=== PATIENT | female | born 1995 | race Caucasian/White ===

== ENCOUNTER 2016-08-12 15:01 | Emergency (ER) | payer OTHER ==
--- NOTE | 2016-08-12 15:26 | ED NURSING NOTES ---
Clinical Report - Nurses [facility] [address] [place] [address] 08/12/2016 15:02 Patient: ARCHIE SAMUEL TRIAGE Triage time 15:16 Aug 12 2016. Acuity: LEVEL 4. Chief Complaint: INJURY TO RIGHT WRIST. DEEP COMA SCORE: [employer] Coma Scale: 15- eyes open spontaneously (4); best verbal response- oriented x 4 (5); best motor response- obeys commands (6). --15:24 Celestino Christianson R.N. 15:15 08/12/16. BP: 132/88. HR: 99. RR: 18. O2 saturation: 100%. Temp: 98.4 F. Pain level now 5/10. --15:24 Celestino Christianson R.N. Weight: 94.8 kg stated. Height/Length: 66 inches Per Patient. BMI: 33.7. --15:22 Celestino Christianson R.N. Medications ASA Oral. --15:18 Celestino Christianson R.N. Allergies Amoxicillin. --15:18 Celestino Christianson R.N. History Arrived by private vehicle. Historian: patient. This occurred at an unknown time. Occurred at work. 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 She has had weakness. No neck pain. 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 PAST MEDICAL HX: Tetanus status: up-to-date. Immunizations: up-to-date. Last normal menstrual period- 2 days ago. SOCIAL HX: Current every day light tobacco smoker (cigarette)- less than 1/2 a pack per day. Occasional alcohol use. No drug use. SELF HARM ASSESSMENT: A self harm assessment was performed. The patient answered "no" to the question "Have you recently felt down, depressed, or hopeless?" and "Do you have thoughts of harming or killing yourself?". FALL RISK ASSESSMENT: Fall risk assessment completed. No fall risk identified. NUTRITIONAL RISK ASSESSMENT: The nutritional risk assessment revealed no deficiencies. FUNCTIONAL ASSESSMENT: Functional assessment: no impairments noted. LEARNING NEEDS ASSESSMENT: The learning needs assessment revealed no barriers. ABUSE ASSESSMENT: Abuse assessment: (yes) The patient was asked "Do you feel safe in your home?". SKIN INTEGRITY ASSESSMENT: Skin integrity risk assessment completed. No skin integrity risk identified. --15:24 Celestino Christianson R.N. PROBLEMS: Gastroenteritis. Sick Contact. Afib . Contact Dermatitis. --15:19 Celestino Christianson R.N. ADDITIONAL SURGERIES: [place] teeth. --15:19 Celestino Christianson R.N. Interventions ID band on patient. --15:24 Celestino Christianson R.N. PHYSICAL ASSESSMENT Ambulatory to room. GENERAL / NEURO / PSYCH: Oriented X 4. Alert. Appears in no acute distress. EXTREMITIES: Capillary refill is less than 2 seconds in the extremities. Extremity pulses are within normal limits. Extremities exhibit normal ROM. Neuro-vascular status intact to the extremity. Right wrist: tenderness. SKIN: Skin intact. Skin is warm and dry. --15:24 Celestino Christianson R.N. NURSING PROGRESS NOTES Reassurance given. Call light placed in reach. Side rails up x 1. Bed placed in lowest position. Brakes of bed on. --15:24 Celestino Christianson R.N. DISPOSITION / DISCHARGE Departure time: 15:35 Aug 12 2016. Condition at departure: unchanged. No learning barriers present. Discharge instructions provided and reviewed with the patient. Reviewed warnings. Reviewed medication(s). Treatments reviewed. Reviewed referrals. Work note given. Patient verbalized understanding. Written instructions provided in Tajik. The patient was discharged home. She left the Emergency Department ambulatory and via private vehicle. Patient driving. --15:35 Celestino Christianson R.N. 15:15 08/12/16. BP: 132/88. HR: 99. RR: 18. O2 saturation: 100%. Temp: 98.4 F. Pain level now 5/10. --15:35 Celestino Christianson R.N. Locked/Released at 08/12/2016 19:21 by Celestino Christianson R.N.
--- NOTE | 2016-08-12 15:26 | ED NURSING NOTES ---
Clinical Report - Nurses [facility] [address] [place] [address] 08/12/2016 15:02 Patient: ARCHIE SAMUEL TRIAGE Triage time 15:16 Aug 12 2016. Acuity: LEVEL 4. Chief Complaint: INJURY TO RIGHT WRIST. DEEP COMA SCORE: [place] Coma Scale: 15- eyes open spontaneously (4); best verbal response- oriented x 4 (5); best motor response- obeys commands (6). --15:24 Celestino Christianson R.N. 15:15 08/12/16. BP: 132/88. HR: 99. RR: 18. O2 saturation: 100%. Temp: 98.4 F. Pain level now 5/10. --15:24 Celestino Christianson R.N. Weight: 94.8 kg stated. Height/Length: 66 inches Per Patient. BMI: 33.7. --15:22 Celestino Christianson R.N. Medications ASA Oral. --15:18 Celestino Christianson R.N. Allergies Amoxicillin. --15:18 Celestino Christianson R.N. History Arrived by private vehicle. Historian: patient. This occurred at an unknown time. Occurred at work. 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 She has had weakness. No neck pain. 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 PAST MEDICAL HX: Tetanus status: up-to-date. Immunizations: up-to-date. Last normal menstrual period- 2 days ago. SOCIAL HX: Current every day light tobacco smoker (cigarette)- less than 1/2 a pack per day. Occasional alcohol use. No drug use. SELF HARM ASSESSMENT: A self harm assessment was performed. The patient answered "no" to the question "Have you recently felt down, depressed, or hopeless?" and "Do you have thoughts of harming or killing yourself?". FALL RISK ASSESSMENT: Fall risk assessment completed. No fall risk identified. NUTRITIONAL RISK ASSESSMENT: The nutritional risk assessment revealed no deficiencies. FUNCTIONAL ASSESSMENT: Functional assessment: no impairments noted. LEARNING NEEDS ASSESSMENT: The learning needs assessment revealed no barriers. ABUSE ASSESSMENT: Abuse assessment: (yes) The patient was asked "Do you feel safe in your home?". SKIN INTEGRITY ASSESSMENT: Skin integrity risk assessment completed. No skin integrity risk identified. --15:24 Celestino Christianson R.N. PROBLEMS: Gastroenteritis. Sick Contact. Afib . Contact Dermatitis. --15:19 Celestino Christianson R.N. ADDITIONAL SURGERIES: [place] teeth. --15:19 Celestino Christianson R.N. Interventions ID band on patient. --15:24 Celestino Christianson R.N. PHYSICAL ASSESSMENT Ambulatory to room. GENERAL / NEURO / PSYCH: Oriented X 4. Alert. Appears in no acute distress. EXTREMITIES: Capillary refill is less than 2 seconds in the extremities. Extremity pulses are within normal limits. Extremities exhibit normal ROM. Neuro-vascular status intact to the extremity. Right wrist: tenderness. SKIN: Skin intact. Skin is warm and dry. --15:24 Celestino Christianson R.N. NURSING PROGRESS NOTES Reassurance given. Call light placed in reach. Side rails up x 1. Bed placed in lowest position. Brakes of bed on. --15:24 Celestino Christianson R.N. DISPOSITION / DISCHARGE Departure time: 15:35 Aug 12 2016. Condition at departure: unchanged. No learning barriers present. Discharge instructions provided and reviewed with the patient. Reviewed warnings. Reviewed medication(s). Treatments reviewed. Reviewed referrals. Work note given. Patient verbalized understanding. Written instructions provided in Chinese. The patient was discharged home. She left the Emergency Department ambulatory and via private vehicle. Patient driving. --15:35 Celestino Christianson R.N. 15:15 08/12/16. BP: 132/88. HR: 99. RR: 18. O2 saturation: 100%. Temp: 98.4 F. Pain level now 5/10. --15:35 Celestino Christianson R.N. Locked/Released at 08/12/2016 19:21 by Celestino Christianson R.N.
--- NOTE | 2016-08-12 15:26 | ED CLINICAL REPORT ---
Clinical Report - Physicians/Mid Levels [facility] [address] [place] [address] 08/12/2016 15:02 Patient: ARCHIE SAMUEL Time Seen: 15:13 Aug 12 2016. Arrived- By private vehicle. Historian- patient. HISTORY OF PRESENT ILLNESS Chief Complaint: Injury to the hand. The injury happened 7 days. Patient is experiencing mild pain. Patient denies injury to the head or neck. 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 He denies previous history of such. Reports prior growth plate fracture nonsurgical when she was younger, denies history of gout or pseudogout. Denies any recent fall or trauma. She is inquiring about a work note. Patient was seen within the last 48 hours, with a negative x-ray per patient. She has been wearing a brace, using anti-inflammatories as well as icing the area, has follow-up within the next 7 days to establish PCP.). REVIEW OF SYSTEMS All systems otherwise negative, except as recorded above. PAST HISTORY The patient's dominant hand is the right. She has had a prior injury to the same area. SOCIAL HISTORY Current every day smoker. Alcohol use. ADDITIONAL NOTES The nursing notes have been reviewed. PHYSICAL EXAM Vital Signs: 08/12/2016 15:15 BP: 132/88. HR: 99. RR: 18. O2 saturation: 100%. Temp: 98.4 F. Appearance: Alert. Head: Head atraumatic. CVS: Normal heart rate and rhythm. Heart sounds normal. Respiratory: No respiratory distress. Breath sounds normal. Skin: Skin warm. Skin intact. Extremities: Anatomic snuffbox, right arm: No tenderness or swelling. Right distal radius: mild tenderness. Neurovascular intact distally. No abrasion or foreign body. No limitation of thumb movement or in ROM at the wrist. Right distal ulna: mild tenderness. Neurovascular intact distally. No swelling or foreign body. No limited ROM at the wrist. Right hand. No swelling or laceration. Neuro, Vascular and Tendons: Vascular status intact. No pulse deficit present. Motor intact. No functional tendon deficit. Neuro: Oriented X 3. PROGRESS AND PROCEDURES Course of Care: patient here in the ER with a wrist splint, Velcro nature, with no signs of trauma, no signs of erythema or ecchymosis or secondary infectious process. No swelling. No history of gout or pseudogout. This has been ongoing for almost one month, generally worsening with repetitive movement. Patient has been utilizing anti-inflammatories. Recent negative x-ray. This time suspicion for acute osteomyelitis, septic joint is low, given afebrile nature, and a negative workup recently. Patient is to establish primary care follow-up as such, as well as orthopedics as needed. Patient is stable. Patient/family counseled. Disposition: Discharged. Condition: good. CLINICAL IMPRESSION Acute inflammatory tendonitis in the right wrist. INSTRUCTIONS Apply ice. Do not work with right hand for nine days. (may follow up with ortho: [phone]). OTC Medications: Take ibuprofen (Advil, Nuprin, etc.) according to label instructions. Available over the counter. (take 800 mg every 8 hours with food for 10 days) (Electronically signed by Cynthia Whelan P.A.-C 08/12/2016 15:31)
--- NOTE | 2016-08-12 15:26 | ED CLINICAL REPORT ---
Clinical Report - Physicians/Mid Levels [facility] [address] [place] [address] 08/12/2016 15:02 Patient: ARCHIE SAMUEL Time Seen: 15:13 Aug 12 2016. Arrived- By private vehicle. Historian- patient. HISTORY OF PRESENT ILLNESS Chief Complaint: Injury to the hand. The injury happened 7 days. Patient is experiencing mild pain. Patient denies injury to the head or neck. 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 He denies previous history of such. Reports prior growth plate fracture nonsurgical when she was younger, denies history of gout or pseudogout. Denies any recent fall or trauma. She is inquiring about a work note. Patient was seen within the last 48 hours, with a negative x-ray per patient. She has been wearing a brace, using anti-inflammatories as well as icing the area, has follow-up within the next 7 days to establish PCP.). REVIEW OF SYSTEMS All systems otherwise negative, except as recorded above. PAST HISTORY The patient's dominant hand is the right. She has had a prior injury to the same area. SOCIAL HISTORY Current every day smoker. Alcohol use. ADDITIONAL NOTES The nursing notes have been reviewed. PHYSICAL EXAM Vital Signs: 08/12/2016 15:15 BP: 132/88. HR: 99. RR: 18. O2 saturation: 100%. Temp: 98.4 F. Appearance: Alert. Head: Head atraumatic. CVS: Normal heart rate and rhythm. Heart sounds normal. Respiratory: No respiratory distress. Breath sounds normal. Skin: Skin warm. Skin intact. Extremities: Anatomic snuffbox, right arm: No tenderness or swelling. Right distal radius: mild tenderness. Neurovascular intact distally. No abrasion or foreign body. No limitation of thumb movement or in ROM at the wrist. Right distal ulna: mild tenderness. Neurovascular intact distally. No swelling or foreign body. No limited ROM at the wrist. Right hand. No swelling or laceration. Neuro, Vascular and Tendons: Vascular status intact. No pulse deficit present. Motor intact. No functional tendon deficit. Neuro: Oriented X 3. PROGRESS AND PROCEDURES Course of Care: patient here in the ER with a wrist splint, Velcro nature, with no signs of trauma, no signs of erythema or ecchymosis or secondary infectious process. No swelling. No history of gout or pseudogout. This has been ongoing for almost one month, generally worsening with repetitive movement. Patient has been utilizing anti-inflammatories. Recent negative x-ray. This time suspicion for acute osteomyelitis, septic joint is low, given afebrile nature, and a negative workup recently. Patient is to establish primary care follow-up as such, as well as orthopedics as needed. Patient is stable. Patient/family counseled. Disposition: Discharged. Condition: good. CLINICAL IMPRESSION Acute inflammatory tendonitis in the right wrist. INSTRUCTIONS Apply ice. Do not work with right hand for nine days. (may follow up with ortho: [phone]). OTC Medications: Take ibuprofen (Advil, Nuprin, etc.) according to label instructions. Available over the counter. (take 800 mg every 8 hours with food for 10 days) (Electronically signed by Cynthia Whelan P.A.-C 08/12/2016 15:31)
--- NOTE | 2016-08-12 19:21 | ED MAR SUMMARY ---
..... Medication Administration Record [facility] [address], [place] [id number] Patient: ARCHIE SAMUEL Visit ID: [id number] 20y, F Weight: 94.8 kg Height/Length: 66 in BMI: 33.7 ALLERGIES: Amoxicillin
--- NOTE | 2016-08-12 19:21 | ED MAR SUMMARY ---
..... Medication Administration Record [facility] [address] [place], [place] [id number] Patient: ARCHIE SAMUEL Visit ID: [id number] 20y, F Weight: 94.8 kg Height/Length: 66 in BMI: 33.7 ALLERGIES: Amoxicillin
--- NOTE | 2016-08-12 19:21 | ED DISCHARGE INSTRUCTIONS ---
Patient: ARCHIE SAMUEL General Instructions [facility] VisitID: [id number] [place] [address] 20y, F Registration Date/Time: 08/12/2016 Acute inflammatory tendonitis in the right wrist. INSTRUCTIONS Apply ice. Do not work with right hand for nine days. (may follow up with ortho: [phone]). OTC Medications: Take ibuprofen (Advil, Nuprin, etc.) according to label instructions. Available over the counter. (take 800 mg every 8 hours with food for 10 days) ADDITIONAL INFORMATION Tendonitis A tendon is the thick fibrous cord that joins muscle to bone and causes joints to move. Tendonitis is inflammation of the tendon which may be due to overuse, injury or infection. This usually involves the shoulders, forearm, wrist, hands and foot. Symptoms include local pain, swelling and tenderness to the touch. Movement of the involved joint increases the pain. Tendonitis requires about 4 to 6 weeks to heal. It is treated by preventing motion of the tendon with a splint or brace and use of anti-inflammatory medicine. Home Care: Apply an ice pack (ice cubes in a plastic bag, wrapped in a towel) over the injured area for 20 minutes every 1-2 hours the first day for pain relief. Continue this 3-4 times a day until the pain and swelling goes away. Rest the inflamed joint and protect it from movement. You may use ibuprofen (Motrin, Advil) or naproxen (Aleve, Naprosyn) to treat pain and inflammation, unless another medicine was prescribed. If you can't take these medicines, acetaminophen (Tylenol) may help with the pain, but does not treat inflammation. [NOTE : If you have chronic liver or kidney disease or ever had a stomach ulcer or GI bleeding, talk with your doctor before using these medicines.] As your symptoms improve, begin gradual motion at the involved joint. Follow Up With Your Doctor If Not Improving After The First Five Days Of Treatment. Get Prompt Medical Attention If Any Of The Following Occur: Redness over the painful area Increasing pain or swelling at the joint Fever of 100.4F (38C) or higher, or as directed by your healthcare provider You have been given the following additional information: Tendonitis Do not work with right hand for nine days. (Electronically signed by Cynthia Whelan P.A.-C 08/12/2016 15:31)
--- NOTE | 2016-08-12 19:21 | ED MED RECONCILIATION SUMMARY ---
Patient: ARCHIE SAMUEL Medication Reconciliation Report [facility] VisitID: [id number] [place] [address] 20y, F Registration Date/Time: 08/12/2016 Weight: 94.8 kg Height/Length: 66 in. BMI: 33.7 ALLERGIES: Amoxicillin The patient's Home Medications are listed below: THE FOLLOWING MEDICATIONS NEED TO BE RECONCILED: ASA Oral The source(s) of the original Home Medication information: Not obtained. The following Medications were given to the patient in the Emergency Department: None. The following Medications were prescribed to the patient: Take ibuprofen (Advil, Nuprin, etc.) according to label instructions. Available over the counter.(take 800 mg every 8 hours with food for 10 days) -- Cynthia Whelan P.A.-C
--- NOTE | 2016-08-12 19:21 | ED MED RECONCILIATION SUMMARY ---
Patient: ARCHIE SAMUEL Medication Reconciliation Report [facility] VisitID: [id number] [place] [address] 20y, F Registration Date/Time: 08/12/2016 Weight: 94.8 kg Height/Length: 66 in. BMI: 33.7 ALLERGIES: Amoxicillin The patient's Home Medications are listed below: THE FOLLOWING MEDICATIONS NEED TO BE RECONCILED: ASA Oral The source(s) of the original Home Medication information: Not obtained. The following Medications were given to the patient in the Emergency Department: None. The following Medications were prescribed to the patient: Take ibuprofen (Advil, Nuprin, etc.) according to label instructions. Available over the counter.(take 800 mg every 8 hours with food for 10 days) -- Cynthia Whelan P.A.-C
--- NOTE | 2016-08-12 19:21 | ED DISCHARGE INSTRUCTIONS ---
Patient: ARCHIE SAMUEL General Instructions [facility] VisitID: [id number] [place] [address] 20y, F Registration Date/Time: 08/12/2016 Acute inflammatory tendonitis in the right wrist. INSTRUCTIONS Apply ice. Do not work with right hand for nine days. (may follow up with ortho: [phone]). OTC Medications: Take ibuprofen (Advil, Nuprin, etc.) according to label instructions. Available over the counter. (take 800 mg every 8 hours with food for 10 days) ADDITIONAL INFORMATION Tendonitis A tendon is the thick fibrous cord that joins muscle to bone and causes joints to move. Tendonitis is inflammation of the tendon which may be due to overuse, injury or infection. This usually involves the shoulders, forearm, wrist, hands and foot. Symptoms include local pain, swelling and tenderness to the touch. Movement of the involved joint increases the pain. Tendonitis requires about 4 to 6 weeks to heal. It is treated by preventing motion of the tendon with a splint or brace and use of anti-inflammatory medicine. Home Care: Apply an ice pack (ice cubes in a plastic bag, wrapped in a towel) over the injured area for 20 minutes every 1-2 hours the first day for pain relief. Continue this 3-4 times a day until the pain and swelling goes away. Rest the inflamed joint and protect it from movement. You may use ibuprofen (Motrin, Advil) or naproxen (Aleve, Naprosyn) to treat pain and inflammation, unless another medicine was prescribed. If you can't take these medicines, acetaminophen (Tylenol) may help with the pain, but does not treat inflammation. [NOTE : If you have chronic liver or kidney disease or ever had a stomach ulcer or GI bleeding, talk with your doctor before using these medicines.] As your symptoms improve, begin gradual motion at the involved joint. Follow Up With Your Doctor If Not Improving After The First Five Days Of Treatment. Get Prompt Medical Attention If Any Of The Following Occur: Redness over the painful area Increasing pain or swelling at the joint Fever of 100.4F (38C) or higher, or as directed by your healthcare provider You have been given the following additional information: Tendonitis Do not work with right hand for nine days. (Electronically signed by Cynthia Whelan P.A.-C 08/12/2016 15:31)
== END 2016-08-12 15:35 | disposition home or self-care (01) ==
LOC: ED SRH 15:01
DX: M77.8 Other enthesopathies, not elsewhere classified (principal); F17.210 Nicotine dependence, cigarettes, uncomplicated; Z79.82 Long term (current) use of aspirin; Z88.1 Allergy status to other antibiotic agents